=== PATIENT | female | born 1975 | race Caucasian/White ===

== ENCOUNTER 2017-06-20 20:05 | Emergency (ER) | payer OTHER ==
[~2017-06-20] VITALS: Ht 160 cm; Wt 81.8 kg
[2017-06-20 20:44] LABS: HEMATOCRIT 36.8 % (36.0-46.0); HEMOGLOBIN 12.3 G/DL (11.9-15.5); MCH 29.6 PG (29.0-34.0); MCHC 33.4 G/DL (30.0-36.0); MCV 88.7 FL (83-99); PLATELET COUNT 205 K/uL (156-360); RBC DIS.WIDTH-CV 12.9 % (11.8-14.6); RBC DIS.WIDTH-SD 41.9 % (39-53); RED BLOOD COUNT 4.15 M/uL (3.80-5.20); WHITE BLOOD COUNT 5.9 K/uL (4.1-10.2)
[2017-06-20 20:56] LABS: CHLORIDE 105 mEq/L (99-109); POTASSIUM 3.6 mEq/L (3.7-5.4); SODIUM 140 mEq/L (136-147)
[2017-06-20 20:57] LABS: GLUCOSE 106 mg/dL (70-99)
[2017-06-20 21:01] LABS: CREATININE 0.8 mg/dL (0.6-1.3)
[2017-06-20 21:02] LABS: UREA NITROGEN (BUN) 12 mg/dL (9-23)
[2017-06-20 21:15] LABS: GFR ESTIMATE (CALCULATED) > 59 mL/min/
[2017-06-20] MEDS ORDERED: TAMIFLU75 MG PO (22:43)
[2017-06-20 23:16] VITALS: BP 129/70
== END 2017-06-20 23:18 | disposition home or self-care (01) ==
LOC: EME 20:05
PROVIDERS: Emergency Medicine
DX: J10.1 Influenza due to other identified influenza virus with other respiratory manifestations (principal); L50.9 Urticaria, unspecified
CPT/HCPCS: 71046; 80048; 85027; 87502; 87651 90; 99281; 99283